=== PATIENT | male | born 1985 | race Caucasian/White ===

== ENCOUNTER 2023-03-12 02:02 | Emergency (ER) | payer MEDICAID, SELFPAY ==
[2023-03-12] VITALS (11 sets, daily range): BP systolic 74–172; BP diastolic 52–153; PULSE 113–158; RESP 12–46; TEMP 36.6–36.7; O2SAT 15–96; BMI 75.9
--- NOTE | 2023-03-12 02:26 | RAD_ITS ---
EXAM: XR CHEST, 1 VIEW CLINICAL INDICATION: shortness of breath TECHNIQUE: Frontal view of the chest. COMPARISON: No relevant prior studies available. FINDINGS: LUNGS AND PLEURAL SPACES: Low lung volumes limit the exam. Subsegmental atelectasis in the lung bases bilaterally. No pneumothorax. No effusion. HEART: Unremarkable. Cardiac silhouette not enlarged. MEDIASTINUM: Central airways and mediastinal contour are unremarkable. BONES/JOINTS: Unremarkable. SOFT TISSUES: Unremarkable. RAD/Chest 1 View (Portable) IMPRESSION: Low lung volumes limit the exam. Subsegmental atelectasis in the lung bases bilaterally. Electronically Signed: Will Rogers MD at 3:06 EDT ,
--- NOTE | 2023-03-12 02:28 | EX.ED.DYSGE1 ---
HPI History of Present Illness Chief Complaint: Abd Pain Narrative Narrative: 37-year-old male morbid obesity has history of hernia which she states is irreparable because he could not lose the weight. He relates history that he was at [facility] in [place] for 8 days. He had gone to [facility] and was transferred. There he was being treated for a UTI. His sister relate history to the RN that he was on Lovenox while he was there, and he was new onset diabetes. He also had an acute kidney injury at the time. Patient states that at 8 PM he was coming home from the hospital at the house where his mother used to live. He fell on a ramp. He now has pain in the area of his abdomen where the hernia is near the left lower quadrant. He denies hitting his head or loss of consciousness. States the area is sore. He denies any nausea or vomiting, but states he is having pain in his abdomen. Of note, he was on CPAP while he was hospitalized, and was sent home on nasal cannula oxygen from the hospital. PFSH PFS Home Medications NK 03/12/23 [History Last Taken Unknown] Allergy/AdvReac Type Severity Reaction Status Date / Time morphine AdvReac hallucinati Verified 03/12/23 06:23 ons Social History Smoking Status: Never smoker ROS ROS ED ROS Narrative Constitutional: No fever, no chills. HEENT: No sore throat. No neck pain. No loss of vision. No rhinorrhea. Cardiovascular: No chest pain. No palpitations. No pedal edema. Respiratory: No cough, no shortness of breath. Abdominal: Left lower quadrant abdominal pain. No nausea. No vomiting. Genitourinary: No dysuria. No hematuria. Musculoskeletal: No myalgias. No arthralgias. Neurologic: No headaches. No dizziness. No lightheadedness. Skin: No rash. No change in color. Psychiatric: No depression. No anxiety. EXAM Physical Exam Narrative Exam Narrative: Afebrile. Vital signs noted. HEENT: Normocephalic. Atraumatic. PERRL, EOMI. Neck soft and supple. No point tenderness or step off. Cardiovascular: Positive tachycardia no murmurs, rubs, or gallops appreciated. Respiratory: Positive tachypnea. Difficult to assess secondary to body habitus. Gastrointestinal: Abdomen soft, morbidly obese, protuberant with mild tenderness left of the umbilicus, with normoactive bowel sounds. No rebound or guarding. Noted ecchymosis on lower portion of abdomen. Neurological: Awake. Alert. Nonfocal, nonlateralizing. Skin: No rash. Normal color. No pallor. Musculoskeletal: No pedal edema. Full range of motion extremities. Const Vital Signs: 03/12/23 02:04 03/12/23 02:32 03/12/23 02:34 Temperature 98.1 F Temperature Source Temporal Pulse Rate 142 H 142 H Respiratory Rate 26 H Respiratory Effort Respiratory Depth Respiratory Pattern Blood Pressure 172/153 H Blood Pressure Mean 159 Pulse Ox 92 90 Oxygen Delivery Method Non-Rebreather Non-Rebreather Oxygen Flow Rate (L/min) 15 Fraction of Inspired Oxygen (FIO2) 03/12/23 02:34 03/12/23 03:09 03/12/23 03:12 Temperature 98.1 F 98.0 F Temperature Source Temporal Temporal Pulse Rate 142 H 139 H 139 H Respiratory Rate 44 H 46 H 40 H Respiratory Effort Respiratory Depth Respiratory Pattern Tachypnea Blood Pressure 91/58 L 88/73 L Blood Pressure Mean 69 78 Pulse Ox 92 92 95 Oxygen Delivery Method Non-Rebreather Bi-pap Oxygen Flow Rate (L/min) 15 Fraction of Inspired Oxygen (FIO2) 50 03/12/23 04:00 03/12/23 06:03 03/12/23 02:15 Temperature 97.9 F Temperature Source Temporal Pulse Rate 138 H 121 H Respiratory Rate 40 H 42 H Respiratory Effort Labored Accessory Muscle Use Respiratory Depth Shallow Respiratory Pattern Tachypnea Blood Pressure 74/52 L 102/76 Blood Pressure Mean 59 84 Pulse Ox 93 Oxygen Delivery Method Bi-pap Bi-pap Non-Rebreather Oxygen Flow Rate (L/min) Fraction of Inspired Oxygen (FIO2) 03/12/23 06:20 03/12/23 05:16 03/12/23 05:15 Temperature 98.0 F 97.9 F Temperature Source Temporal Temporal Pulse Rate 113 H 143 H 158 H Respiratory Rate 30 H 42 H 38 H Respiratory Effort Respiratory Depth Respiratory Pattern Tachypnea Blood Pressure 145/100 H 93/80 Blood Pressure Mean 115 84 Pulse Ox 90 96 94 Oxygen Delivery Method Bi-pap Bi-pap Oxygen Flow Rate (L/min) Fraction of Inspired Oxygen (FIO2) 70 03/12/23 06:51 Temperature Temperature Source Pulse Rate Respiratory Rate Respiratory Effort Respiratory Depth Respiratory Pattern Blood Pressure Blood Pressure Mean Pulse Ox Oxygen Delivery Method Bi-pap Oxygen Flow Rate (L/min) Fraction of Inspired Oxygen (FIO2) MDM MDM MDM Narrative Medical decision making narrative: Patient's history and physical is limited secondary to his body habitus and current condition. He is in moderate respiratory distress and was placed on a nonrebreather. Given that he is tachycardic, sepsis work-up will be pursued. I will attempt to order a CT of the abdomen and pelvis without contrast to look for any obstruction, but his weight of 261 kg may prevent any imaging of his abdomen from happening via CT scan. I was informed by the watch repair technician that CT scan of the abdomen would be unable to be performed at this facility. Patient was tachypneic and had been on BiPAP previously. He was placed on BiPAP again. I reviewed his laboratory work and he has an elevated white count of 28.2, hemoglobin normal at 14.3, platelet count normal at 250. Coagulation studies are negative with an INR of 1.5 and an APTT of 32.4. He has a low sodium of 132. Potassium elevated at 5.8. Given with his hyperkalemia, EKG was obtained and interpreted by myself as sinus tachycardia at [address] changes. No STEMI. BUN is elevated at 41 with a creatinine of 2.0. Chest x-ray interpreted by myself shows atelectasis but no evidence of pneumothorax or pneumonia. I reviewed the radiology report which confirms my independent interpretation. Additionally, given his white count, tachycardia, although he is not febrile, he will be treated as sepsis of unknown origin. His sister and his mother at the bedside currently. They state that when he was at [place], he had elevated white counts, but they were trending downward and they were never lower than 15,000. Additionally, they states that he had an acute kidney injury. Initially, IV access was obtained. However, peripheral access was lost. I had lengthy discussion with the patient, his sister, and his mother. Should he require intubation, he now requires IV antibiotics, and IV fluids for his hypotension. Attempt was made by myself at central line placement in the right IJ. There was initial flash of blood, but the guidewire would not pass. Second attempt was made on the right IJ, but once again guidewire would not pass. I looked at the left IJ under ultrasound guidance, and made one break through the skin, but there was no flash of blood. As this is the only other option for IV access and central line placement, I did not attempt a second needlestick on the left. There are no good landmarks to put a subclavian line in, and IV access in the groin is not plausible. I attempted to contact the global marketing operations manager. Other attempts will be made at peripheral line placement as he is requiring IV fluids and antibiotics. Although he was recently at [place], family states that they do not want to return. I had discussed the patient with Dr. Bernard with pulmonary critical care medicine here who suggested perhaps truly an IO and administering intramuscular medications. ABG was obtained which shows a pH of 7.438, PCO2 of 33, and PO2 of 127 with a bicarb of 22.8. Additionally, I had discussed the patient with Dr. Shirley with hospitalist medicine and it was felt that the patient has inappropriate for admission to the ICU here. I have discussed the patient with his family and they would like him transferred to the [facility]. I will call for bed availability at any facility that beds are available for a bariatric patient. I discussed patient with Dr. Almanza with critical care E hospital for [facility]. He has been accepted at the [facility]. He will be transported via critical care transport. He is awaiting transfer currently and bed assignment. I did speak with the nurse practitioner at [facility], and then the transfer center who stated that they would prefer him to be transferred to [facility] in the event that he may need a CT scan of the abdomen. He was able to receive Zosyn, and vancomycin will be started through the peripheral IV. While I was discussing transfer with [facility] transfer line, I was called to the room. RN reports that patient became bradycardic, and apneic, and lost a pulse upon my arrival. ACLS guidelines were instituted and he received epinephrine through his peripheral IV. Chest compressions were started. [place] scope with MAC 3 apparatus was used to insert 8.0 ET tube through visualization. Initially, ET tube was inserted deeply, and pulled back by respiratory therapist to 26 at the lips. I did reconfirm positioning through the cords using the glide scope afterwards. Chest compressions were continued. A total of 7 epinephrine were given along with chest compressions. I had a discussion with his family, his sister and mother. CPR had been in progress for at least 22 minutes. They requested to withdraw care. Compressions were stopped. Patient remained in asystole with no spontaneous respirations. He was pronounced by myself at 7:15 AM. Disposition is . History & Record Review Discussion w/independent historian: Patient and Family Additional record(s) reviewed:: Prior ED visit Lab Data Attestation: I reviewed the patient's lab results. Labs: Laboratory Results - last 24 hr 03/12/23 03/12/23 03/12/23 02:07 02:30 02:30 WBC 28.2 H RBC 4.91 Hgb 14.3 Hct 43.4 MCV 88.4 MCH 29.1 MCHC 32.9 RDW Std Deviation 51.0 H RDW Coeff of David 15.8 H Plt Count 250 MPV 11.3 Immature Gran % (Auto) FIRE APPARATUS SPRINKLER INSPECTOR Neut % (Auto) FIRE APPARATUS SPRINKLER INSPECTOR Lymph % (Auto) FIRE APPARATUS SPRINKLER INSPECTOR [place] % (Auto) FIRE APPARATUS SPRINKLER INSPECTOR Eos % (Auto) FIRE APPARATUS SPRINKLER INSPECTOR Baso % (Auto) FIRE APPARATUS SPRINKLER INSPECTOR Absolute Neuts (auto) 25.1 H Absolute Lymphs (auto) 1.97 Total Counted 100 Neutrophils % (Manual) 64 Band Neutrophils % 17 H Lymphocytes % (Manual) 7 L Monocytes % (Manual) 4 Metamyelocytes % 7 H Myelocytes % 1 H Nucleated RBC % 0 Diff Path Review May foll Platelet Estimate ADEQUATE RBC Morphology NORM C+C PT 18.2 H INR 1.5 APTT 32.4 Sodium Potassium Chloride Carbon Dioxide Anion Gap BUN Creatinine Estim Creat Clear Calc Est GFR (MDRD) Af Amer Est GFR (MDRD) Non-Af BUN/Creatinine Ratio Glucose Lactic Acid Calcium Total Bilirubin AST ALT Alkaline Phosphatase Total Protein Albumin Globulin Albumin/Globulin Ratio Urine Color Urine Clarity Urine pH Ur Specific [place] Urine Protein Urine Glucose (UA) Urine Ketones Urine Occult Blood Urine Nitrite Urine Bilirubin Urine Urobilinogen Ur Leukocyte Esterase Urine RBC Urine WBC Ur Squamous Epith Cells Urine Bacteria Hyaline Casts Urine Mucus POC Glucose 242 H 03/12/23 03/12/23 03/12/23 02:30 02:30 05:05 WBC RBC Hgb Hct MCV MCH MCHC RDW Std Deviation RDW Coeff of David Plt Count MPV Immature Gran % (Auto) Neut % (Auto) Lymph % (Auto) [place] % (Auto) Eos % (Auto) Baso % (Auto) Absolute Neuts (auto) Absolute Lymphs (auto) Total Counted Neutrophils % (Manual) Band Neutrophils % Lymphocytes % (Manual) Monocytes % (Manual) Metamyelocytes % Myelocytes % Nucleated RBC % Diff Path Review Platelet Estimate RBC Morphology PT INR APTT Sodium 132 L Potassium 5.8 H Chloride 94 L Carbon Dioxide 26.0 Anion Gap 12 BUN 41 H Creatinine 2.01 H Estim Creat Clear Calc 57.42 Est GFR (MDRD) Af Amer 48 L Est GFR (MDRD) Non-Af 40 L BUN/Creatinine Ratio 20.4 H Glucose 273 H Lactic Acid 5.6 H* Calcium 8.9 Total Bilirubin 1.80 H AST 40 H ALT 35 Alkaline Phosphatase 115 Total Protein 8.8 H Albumin 2.1 L Globulin 6.7 H Albumin/Globulin Ratio 0.3 L Urine Color Yellow Urine Clarity Sl. Cloudy Urine pH 5.0 Ur Specific [place] 1.020 Urine Protein 30 H Urine Glucose (UA) Normal Urine Ketones 5 H Urine Occult Blood 25 H Urine Nitrite Positive H Urine Bilirubin 1 H Urine Urobilinogen 4 H Ur Leukocyte Esterase 25 H Urine RBC 5-10 SEEN Urine WBC 5-10 SEEN Ur Squamous Epith Cells 5-10 SEEN Urine Bacteria 1+ Hyaline Casts 5-10 SEEN Urine Mucus 0 SEEN POC Glucose ABG Data ABG results: ABG 03/12/23 04:51 Specimen Type ART Sample Site R Radial pH 7.44 Bicarbonate Actual 22.8 Total CO2 24 Base Excess -1 O2 Saturation 99 O2 % 80 ABG pCO2 33.7 L ABG pO2 127 H Ronal Test Positive Respiration Rate 45 O2 Delivery Device BiPAP Tidal Volume 500 Clinical Comments Radiography Diagnostic Testing: Clinical Impression(s) from Imaging Studies Chest X-Ray 03/12/23 02:26 IMPRESSION: Low lung volumes limit the exam. Subsegmental atelectasis in the lung bases bilaterally. Electronically Signed: Will Rogers MD at 3:06 EDT , Critical Care Time Critical care time (excluding procedures): 30-74 minutes (61), Including time spent:, Discussing w/Patient &/or Family/General Repair Mechanic, Discussing w/Consultants, Arranging Admission or Transfer and Performing Direct Patient Care at Bedside Discharge Plan Triage Chief Complaint: Abd Pain ED Provider: Vu Giordano Dx/Rx/DC Orders Clinical Impression: Sepsis, Acute respiratory distress, Morbid obesity Prescriptions: No Action NK Primary Care Provider: Johnny Garces Referrals: Johnny Garces MD [Primary Care Provider] - Disposition Disposition: Acute Care Hospital Discharge Location: [facility]
[2023-03-12 02:43] LABS: Hematocrit 43.4 % (40-54); Hemoglobin 14.3 g/dL (13.0-16.5); Mean Corp Hgb Conc 32.9 g/dL (32-36); Mean Corpuscular Hgb 29.1 pg (27.0-32.0); Mean Corpuscular Volume 88.4 fL (80-94); Mean Platelet Vol. 11.3 fl (6.2-12.0); NRBC Flagged by Analyzer 0 % (0-5); POSITIVE DIFFERENTIAL YES; POSITIVE MORPHOLOGY YES; Platelet Count 250 K/mm3 (150-450); RBC Distribution Width CV 15.8 % (11.6-14.6); Red Blood Count 4.91 M/mm3 (4.6-6.2); White Blood Count 28.2 K/mm3 (4.4-11.0)
[2023-03-12 02:45] LABS: Differential Indicated SCAN CRITERIA MET
[2023-03-12 02:48] LABS: International Normalized Ratio 1.5; Prothrombin Time (Protime)PT. 18.2 SECONDS (11.7-14.9)
[2023-03-12 02:49] LABS: Partial Thromboplast Time 32.4 Seconds (24.1-36.2)
[2023-03-12 03:03] LABS: ALB/GLOB Ratio 0.3 RATIO (0.9-2.4); AST(SGOT) 40 U/L (15-37); Alanine Aminotransfer ALT/SGPT 35 U/L (16-61); Albumin, Serum 2.1 g/dL (3.2-5.0); Alkaline Phosphatase 115 U/L (45-117); Anion Gap 12 (5-15); BUN 41 mg/dL (7-18); BUN/Creat Ratio 20.4 RATIO (10-20); Calcium,Total 8.9 mg/dL (8.5-10.1); Chloride 94 mmol/L (98-107); Creatinine, Serum 2.01 mg/dL (0.70-1.30); EST Glomerular Filtration Rate 40 mL/min (>60); Est Glom Filt Rate - Afr Amer 48 mL/min (>60); Estimated Creatinine Clearance 57.42 ml/min; Globulin 6.7 g/dL (2.2-4.2); Glucose 273 mg/dL (74-106); Potassium 5.8 mmol/L (3.5-5.1); Protein, Total 8.8 g/dL (6.4-8.2); Sodium Level 132 mmol/L (136-145)
[2023-03-12 03:04] LABS: Bedside Glucose 242 mg/dL (74-106)
[2023-03-12 03:04] LABS: Scan Smear per Review Criteria MANUAL DIFF
[2023-03-12 03:06] LABS: Neutrophil-Band 17 % (0-5); Neutrophil-Segmented 64 % (47-70); Total Cells Counted 100 (MANUAL DIFF)
[2023-03-12 03:07] LABS: Lymphocyte 7 % (19-41); Metamyelocyte 7 % (0-1); Monocyte 4 % (0-10); Myelocyte 1 % (0-0)
[2023-03-12 03:08] LABS: Absolute Lymphocyte Count 1.97 X10^3/uL (0.83-4.51); Absolute Neutrophil Count 25.1 X10^3/uL (2.0-7.7); Lymphocyte # 1.97 X10^3/ul (0.83-4.51); Neutrophil # 25.11 X10^3/uL (2.7-7.7); Platelet Estimate ADEQUATE (ADEQ)
[2023-03-12 03:09] LABS: Red Cell Morphology NORM C+C NORMAL (NORM C&C)
[2023-03-12 03:20] LABS: Lactic Acid 5.6 mmol/L (0.4-1.9)
--- NOTE | 2023-03-12 03:20 | ED.RN ---
set up for central line placement.
[2023-03-12 04:54] LABS: Allen Test Positive; Base Excess -1 mmol/L (-2 to +2); Bicarbonate 22.8 mmol/L (22-26); Blood Gas Specimen Type ART; FI02 80; O2 Delivery Device BiPAP; PO2 127 mmHG (75-100); RR 45; SITE R Radial; SO2 99 % (95-99); Total Carbon Dioxide 24 mmol/L; Vt 500; pCO2 33.7 mmHg (35-45); pH 7.44 (7.35-7.45)
[2023-03-12] MEDS: 0.9% Normal Saline 1,000 ML 999 ML IV ×2 (04:56→06:13)
[2023-03-12 05:14] LABS: Mucous, Urine 0 SEEN /hpf (<or=2+)
--- NOTE | 2023-03-12 05:20 | ED.RN ---
central line not successful. 2 20G iv sites obtained both sites infiltrated with normal saline bolus started. Doctor updated
[2023-03-12 05:22] LABS: Color, Urine Yellow (Yellow); Glucose, Dipstick Normal (Normal); Ketone-Dipstick 5 mg/dl (Negative); Leukocyte Esterase-Dipstick 25 /ul (Negative); Nitrite-Dipstick Positive (Negative); Occult Blood-Urine 25 /ul (Negative); Protein-Dipstick 30 mg/dl (Negative); Urine Clarity Sl. Cloudy (Clear); Urine Urobilinogen 4 mg/dl (Normal)
[2023-03-12 05:27] LABS: Urine Bilirubin Dipstick 1 mg/dL (Negative)
[2023-03-12 05:40] LABS: Bacteria 1+ /hpf (None Seen); Hyaline Cast 5-10 SEEN /lpf (0-5); Red Blood Cells-Urine 5-10 SEEN /hpf (0-5); Squamous Epithelial Cells - UA 5-10 SEEN /hpf (0-5); White Blood Cells 5-10 SEEN /hpf (0-5)
--- NOTE | 2023-03-12 05:52 | ED.RN ---
IV left AC obtained restarted IV NS and Zosyn
[2023-03-12 06:35] LABS: Reflex Lactate? Y
--- NOTE | 2023-03-12 07:15 | NURSING ---
Dr Giordano spoke with family and stated to stop compression. Time of 0715.
--- NOTE | 2023-03-12 07:18 | NURSING ---
total of 1L normal saline 0.9% administered during code
[2023-03-13 13:10] LABS: Pathologist Review Reviewed
== END 2023-03-12 12:42 ==
PROVIDERS: Emergency Provider Emergency Medicine; PCP Family Medicine; Visit Provider Emergency Medicine
DX: A41.9 Sepsis, unspecified organism (principal); N17.9 Acute kidney failure, unspecified; E66.01 Morbid (severe) obesity due to excess calories; E11.9 Type 2 diabetes mellitus without complications; E87.5 Hyperkalemia; J98.11 Atelectasis; K46.9 Unspecified abdominal hernia without obstruction or gangrene; R06.03 Acute respiratory distress
CPT/HCPCS: 31500; 36600; 71045; 80053; 81001; 82803; 82962; 83605; 85025; 85610; 85730; 87040; 87077; 87086; 92950; 93005; 94002; 96361; 96365; 96367; 99284; J7030; J7040; A4216